=== PATIENT | female | born 1955 | race Caucasian/White ===

== ENCOUNTER → 2020-10-21 | Outpatient (CLI) | payer MEDICARE, OTHER ==
[~2020-10-21] MED LIST: CLARITIN10 M2 PO; CLARITIN10 MG PO; ECOTRIN81 MG PO; MESTINON TAB 6060 MG PO; SYNTHROID88 MCG PO; VIT D3 PO; VITAMIN D350 MC1 PO
== END ==
LOC: KOH-I 09:24
DX: R10.13 Epigastric pain (principal); K80.20 Calculus of gallbladder without cholecystitis without obstruction
CPT/HCPCS: 74150

== ENCOUNTER 2021-10-29 03:17 | Emergency (ER) | payer OTHER ==
[2021-10-29 03:54] LABS: HEMOGLOBIN 13.5 gm/dl (12.3-15.3); RED BLOOD COUNT 4.51 M/UL (4.00-5.10); WHITE BLOOD COUNT 10.7 K/UL (4.5-11.0)
[2021-10-29 04:13] LABS: BUN/CREATININE RATIO 19 (0-10)
[2021-10-29] MEDS ORDERED: ZOFRAN 4 MG TAB4 MG PO (10:28)
[2021-10-29] MEDS ORDERED: HYDROCODON-ACE1 EAC4 PO (10:28)
== END 2021-10-29 10:54 | disposition home or self-care (01) ==
LOC: ER1 03:17
PROVIDERS: Family Medicine
DX: K80.20 Calculus of gallbladder without cholecystitis without obstruction (principal); Z88.0 Allergy status to penicillin; Z79.899 Other long term (current) drug therapy
CPT/HCPCS: 76705; 80053; 81001; 82550; 82553; 83690; 84484; 85025; 93005; 96374; 99284; J2405

== ENCOUNTER → 2021-11-19 | Outpatient (CLI) | payer OTHER ==
[~2021-11-19] MED LIST changes: +HYDROCODON-ACE1 EAC4 PO; +ZOFRAN 4 MG TAB4 MG PO
== END ==
LOC: ECHO 09:00
DX: Q21.1 Atrial septal defect (principal); G45.9 Transient cerebral ischemic attack, unspecified; I07.1 Rheumatic tricuspid insufficiency
CPT/HCPCS: ECHO; 93306